=== PATIENT | female | born 1975 | race Caucasian/White ===

== ENCOUNTER 2020-07-30 13:04 | Observation (INO) | payer SELFPAY ==
[2020-07-30] MEDS ORDERED: SODIUM CHLORIDE 0.9% 50 ML VIAL INJ ONE (13:05)
[2020-07-30] MEDS ORDERED: PROPOFOL 200 MG/20 ML VIAL IV ONE (13:05)
[2020-07-30] MEDS ORDERED: DEXAMETHASONE INJ 10 MG/ML VIAL IV ONE (13:05)
[2020-07-30] MEDS ORDERED: GLYCOPYRROLATE 0.2 MG/ML VIAL IV ONE (13:05)
[2020-07-30] MEDS ORDERED: LIDOCAINE 1% 10 ML VIAL INJ ONE (13:05)
[2020-07-30] MEDS ORDERED: MAGNESIUM SULFATE INJ 1 GM/2 ML VIAL IVPB ONE (13:05)
[2020-07-30] MEDS ORDERED: LACTATED RINGERS 1,000 ML ONE (13:20)
[2020-07-30] MEDS ORDERED: metroNIDAZOLE IV PREMIX 500MG 100 ML IVPB ONE (13:20)
[2020-07-30] MEDS ORDERED: KETAMINE HCL 100 MG/ML VIAL ONE (13:37)
[2020-07-30] MEDS ORDERED: MIDAZOLAM INJ 2 MG/2 ML VIAL ONE (13:37)
[2020-07-30] MEDS ORDERED: fentaNYL CITRATE INJ 50 MCG/ML 2 ML AMP ONE (13:37)
[2020-07-30] MEDS ORDERED: DEXMEDETOMIDINE HCL 200 MCG/2 ML INJ IV ONE (13:37)
[2020-07-30] MEDS ORDERED: SUGAMMADEX SODIUM 200 MG/2 ML VIAL IV ONE (13:37)
[2020-07-30] MEDS ORDERED: FAMOTIDINE INJ 10 MG/ML VIAL IV ONE (13:38)
[2020-07-30] MEDS ORDERED: ROCURONIUM BROMIDE 10 MG/ML VIAL ONE (13:38)
[2020-07-30] MEDS ORDERED: BUPIVACAINE 0.25% W/EPI 50 ML VIAL INJ ONE ×2 (13:39→13:56)
[2020-07-30] MEDS ORDERED: ELECTROLYTE-A 1,000 ML IVS ONE (15:25)
[2020-07-30] MEDS ORDERED: MORPHINE SULFATE INJ 10 MG/ML VIAL IV PRN (15:32)
[2020-07-30] MEDS ORDERED: ONDANSETRON INJ 4 MG/2 ML VIAL IV PRN (15:32)
[2020-07-30] MEDS ORDERED: PANTOPRAZOLE SODIUM IV 40 MG VIAL IV SCH (16:00)
--- NOTE | 2020-07-30 16:00 | OP ---
DATE OF PROCEDURE: 07/30/20 PREOPERATIVE DIAGNOSIS: 1. Right lower quadrant abdominal pain. 2. Leukocytosis. 3. Abnormal CT scan suspicious for appendicitis. POSTOPERATIVE DIAGNOSIS: 1. Right lower quadrant abdominal pain. 2. Leukocytosis. 3. Abnormal CT scan suspicious for appendicitis. 4. Acute appendicitis. PROCEDURE: 1. Laparoscopy and appendectomy. SURGEON: Merrick Cardenas MD. TRUCKER HAND: None. ANESTHESIA: General endotracheal anesthesia and local infiltration of 0.25% Marcaine with epinephrine. INDICATION: The patient is a 44-year-old female who developed abdominal pain yesterday. She did not eat after dinner last night. The pain worsened and she presented to the Emergency Room and was found to have a white count of 16,000. She underwent CT scan which was suspicious for acute appendicitis. She was transferred from [facility] to [facility] as direct admit to co. After discussing the risks, benefits and alternatives to appendectomy including antibiotic therapy, the patient was agreed to this surgery. She was brought to the Surgical Suite this afternoon for appendectomy. FINDINGS: The patient had multiple adhesions in the midline especially from her previous hysterectomy. No other acute pathology was identified. PROCEDURE: After adequate general endotracheal anesthesia was obtained, the patient was prepped and draped in the usual sterile manner. At this time, a surgical time-out was taken. The previous midline incision was injected with local anesthesia and then the scar was incised with a sharp knife. Dissection was carried down bluntly to the midline fascia. Traction sutures were placed on either side of the midline. A small incision was made in the midline fascia and the Millie trocar was introduced under direct vision into the abdominal cavity and fixed in place with a 20 mL syringe. When this was done, CO2 was introduced until a pressure of 12 mmHg was reached and the abdomen was tympanitic in all four quadrants. When this was done, the laparoscope was introduced and with some difficulty and performing some lysis of adhesions using the scope, eventually the right lower quadrant was identified. The suprapubic port was placed to the right of the patient's midline adhesions. The right lower quadrant was explored and the appendix was identified. Again, some adhesions were taken down using blunt dissection allowing us to see the left lower quadrant and the left lower quadrant port was placed under direct vision in the usual manner and fixed in place with the balloon. When this was done, some dissection was done with blunt dissection to allow the passage through the midline to the adhesions to the right lower quadrant. When this was done, the appendix was elevated. The base of the appendix as identified and the mesoappendix was divided at the base using blunt dissection. The Endo-HARLAN with a vascular load was then introduced and the base of the appendix was divided with it, followed by two more firings for the mesoappendix. A bag was introduced through the left lower quadrant port, opened and the appendix was introduced into it. The appendix was then removed through the left lower quadrant portion in the usual manner under direct vision. When this was done, a single sponge was introduced into the area of the appendix. No obvious significant bleeding was identified. The sponge was removed through the left lower quadrant port. At this point, the left lower quadrant port was removed and the port site fascia was approximated with two simple sutures of 0 Vicryl placed using the EndoClose device. When these were tightened and tied, hemostasis was noted to be adequate. At this point, the suprapubic port was removed. Adequate hemostasis was noted. At this point, the CO2, the laparoscope and the infraumbilical port were removed. The infraumbilical port site fascia was approximated with a single [id number] suture of 0 Vicryl. Subcutaneous tissue was irrigated with saline. Skin edges were loosely approximated with a skin stapler. Sterile dressings were applied. The patient was awakened and taken to the Recovery Room in good and stable condition. Estimated blood loss was less than 50 mL. All sponge, needle and instrument counts were correct. #[id number] MTDD
[2020-07-30] MEDS: LABETALOL INJ 5 MG/ML VIAL ONE ×2 (16:04→16:21)
[2020-07-30] MEDS ORDERED: hydrALAZINE HCl 20 MG/ML VIAL ONE (16:30)
--- NOTE | 2020-07-30 19:10 | CONS ---
SUPERVISING PHYSICIAN: Arnulfo Gallagher MD REFERRING PHYSICIAN: Dr. Merrick Cardenas REASON FOR CONSULTATION: Postoperative hypertension and sleep apnea. HISTORY OF PRESENT ILLNESS: Ms. Marks is a 44 year-old female patient who presented to the Emergency Room at [facility] this morning around 2 o'clock. She was having some right lower quadrant pain that she could not resolve a home. She presented to the Emergency Room for evaluation and on CT of the abdomen was found to have early appendicitis. She was then referred to [facility] to Dr. Cardenas for surgical intervention. She has a history of hypertension, hypothyroidism and was mildly hypertensive in surgery and postoperatively was having some obstructive episodes and is now going to be placed in observation overnight. I was requested by anesthesia to see the patient for hypertension and further airway management as needed. The patient was seen in stable condition. She is alert. PAST MEDICAL HISTORY: 1. Hypertension. 2. Hypothyroidism. 3. Undiagnosed obstructive sleep apnea. 4. Chronic nicotine addiction. 5. Morbid obesity. PAST SURGICAL HISTORY: 1, x3. 2. Cholecystectomy. 3. Total hysterectomy. 4. Bladder suspension. 5. Lithotripsy for kidney stones, CURRENT MEDICATIONS: 1. Eurothyrox 100 mcg daily. 2. Hydrochlorothiazide 25 mg daily. 3. Lisinopril 40 mg daily. ALLERGIES: Amoxicillin, Betadine, Clindamycin, Iodine. FAMILY HISTORY: Noncontributory to current hospitalization. SOCIAL HISTORY: The patient is . She lives in [place], [place]. She works at a community store. She does smoke cigarettes, approximately half pack a day. She does not use any illicit drugs or alcohol. REVIEW OF SYSTEMS: CONSTITUTIONAL: Denies fever, chills, general malaise, unexplained weight loss or weight gain. HEENT: Denies headaches, vision, sore throat, nasal congestion, headaches, earaches. RESPIRATORY: Denies coughing, wheezing, shortness of breath. She does note she has some issues with snoring at night but has never been diagnosed with obstructive sleep apnea nor has she had a sleep study. Denies any recent exposure to any high risk patients for Covid. CARDIOVASCULAR: Denies chest pain, palpitations, syncopal episodes. GASTROINTESTINAL: As noted in history of present illness with right lower quadrant pain. MUSCULOSKELETAL: Denies joint swelling, arthralgias. GENITOURINARY: Denies dysuria, hematuria, polyuria. NEUROLOGICAL: Denies ataxia, seizures, weakness, paresthesias, no focal deficits. HEMATOLOGICAL: Denies unexplained bruising, bleeding, transfusion reactions. PHYSICAL EXAMINATION: VITAL SIGNS: Temperature 98.3, pulse 78, blood pressure 129/106, respirations 18, oxygen saturation 96% initially on room air at rest. Postoperatively, patient was noted to be somewhat hypertensive at 184/113 with some snoring respirations requiring nasal trumpet at times postoperatively. . GENERAL: The patient is sitting in bed and resting comfortably on nasal cannula showing to be in no acute distress. She is alert. HEENT: Tympanic membranes clear bilaterally. Oropharynx pink and moist without lesions. NECK: Supple, non-tender, full range of motion, no jugular venous distention. CHEST: Lung sounds clear to auscultation bilaterally was then carried out rhonchi, rales, or wheezes. . HEART: Regular rate and rhythm without appreciable murmurs, rubs, or gallops. ABDOMEN: Soft, some tenderness noted postoperative; in right lower quadrant, mildly obese, hypoactive bowel sounds. EXTREMITIES: Without edema. NEUROLOGIC: Alert and oriented x 3. LABORATORY: Reviewed from preoperative management noted with postoperative labs pending in the morning. CBC noted she had a white count of 16,600, Urinalysis showed 2+ protein, 2+ blood, 5 to 10 RBCs, 40 to 50 WBCs, 1+ bacteria. Potassium 4.1, creatinine 1.3. RADIOLOGY: Preoperative x-rays from [facility] showed abdominal CT scan done showed findings suggestive acute appendicitis. Please see those reports for details. ASSESSMENT: 1. Right lower quadrant pain with associated acute appendicitis status post laparoscopic appendectomy. 2. Poorly controlled hypertension. 3. Hypothyroidism, on supplementation. 4. Probably undiagnosed obstructive sleep apnea. 5. Morbid obesity. 6. Nicotine addiction in a smoker. 7. Questionable urinary tract infection on preop. PLAN: Ms. Marks is in observation postoperative appendectomy and recovery. We will follow her tonight, we can utilize C-PAP if we need to. We will monitor blood pressures, resume her medications once those are available and appropriate to care. At some point, we need to see if they did a urine culture at [facility] as it does look like on her lab she probably has a urinary tract infection but she has been well-covered with Levaquin. Will continue to follow the patient with Dr. Cardenas. She is currently on Levaquin and Flagyl postoperatively. I anticipate she will probably discharge tomorrow. Until the, we will continue to monitor and treat as needed. #[id number] MTDD
[2020-07-30] MEDS: LACTATED RINGERS 1,000 ML IVS PRN (20:05)
[2020-07-30] MEDS: metroNIDAZOLE IV PREMIX 500MG 500 MG in PREMIX BAG 1 BAG IVPB SCH (20:08)
[2020-07-30] MEDS: ACETAMINOPHEN W/COD #3 TAB 1 EA TAB PO PRN (20:10)
[2020-07-31] MEDS: metroNIDAZOLE IV PREMIX 500MG 500 MG in PREMIX BAG 1 BAG IVPB SCH (04:10)
[2020-07-31] MEDS: ACETAMINOPHEN W/COD #3 TAB 1 EA TAB PO PRN (04:10)
[2020-07-31] MEDS: LACTATED RINGERS 1,000 ML IVS PRN (05:43)
[2020-07-31] MEDS ORDERED: levoFLOXacin 500MG IV 500 MG in PREMIX BAG 1 BAG IVPB SCH (10:00)
[2020-07-31 10:56] VITALS: BP 161/91; TEMP 98.3; O2SAT 94
[2020-07-31] MEDS ORDERED: MAGNESIUM HYDROXIDE 30 ML UD PO ONE (11:42)
[2020-07-31] MEDS ORDERED: MAGNESIUM HYDROXIDE 30 ML UD ONE (12:02)
== END 2020-07-31 12:58 | disposition home or self-care (01) ==
LOC: INTOOBSV 13:04 → MS 13:04
PROVIDERS: ADMIT Surgery; ATTEND Surgery
DX: K35.890 Other acute appendicitis without perforation or gangrene (principal); I97.3 Postprocedural hypertension; G47.30 Sleep apnea, unspecified; I10 Essential (primary) hypertension; E03.9 Hypothyroidism, unspecified; E66.01 Morbid (severe) obesity due to excess calories; F17.210 Nicotine dependence, cigarettes, uncomplicated; Z88.0 Allergy status to penicillin; Z88.1 Allergy status to other antibiotic agents; Z88.8 Allergy status to other drugs, medicaments and biological substances; Z79.899 Other long term (current) drug therapy
CPT/HCPCS: 44970; 00840; 96365; 96375; 96376; J3010; J0360; J1956 ×2; J3490 ×4; J3475; J1100; J2250; A4216; J7120 ×3; 80048; 36415; 85025; 94760; 94762